=== PATIENT | female | born 1965 | race Two or more races ===

== ENCOUNTER 2018-11-18 06:49 | Day surgery (SDC) | payer OTHER ==
[2018-11-18] VITALS (13 sets, daily range): BP systolic 111–143; BP diastolic 61–71
[~2018-11-18] VITALS: Ht 157.5 cm; Wt 92.1 kg
[~2018-11-18 06:49] MED LIST: ceFAZolin 1gm IVPB IVPB ONE; celeBREX 200mg Cap **SURGERY PATIENTS ONLY ORAL ONE; oxyCONTIN 20mg tab ORAL ONE
[2018-11-18] MEDS ORDERED: Kenalog-40 1ml Vial ONE (08:33)
[2018-11-18] MEDS ORDERED: EPINEPHrine 1mg/1ml Amp ONE (08:33)
[2018-11-18] MEDS ORDERED: Ketorolac 30mg Inj ONE (08:33)
[2018-11-18] MEDS ORDERED: Bupivacaine 0.25% Inj 30ml INJ ONE (08:33)
[2018-11-18] MEDS ORDERED: Rocuronium Bromide 50mg/5ml Inj IV ONE (08:33)
[2018-11-18] MEDS ORDERED: fentaNYL 100 mcg/2 mL IV ONE (08:36)
[2018-11-18] MEDS ORDERED: Midazolam 2mg/2ml Inj ONE (08:36)
--- NOTE | 2018-11-18 08:37 | Pre-Procedure Note/Attestation ---
Pre-Procedure Note/Attestation Complete Prior to Procedure Planned Procedure: left Procedure Narrative: shoulder arthroscopy, sad, capsular release, possible rc repair Indications for Procedure Pre-Operative Diagnosis: left shoulder rct, impingement Attestation I attest that I discussed the nature of the procedure; its benefits; risks and complications; and alternatives (and the risks and benefits of such alternatives ), prior to the procedure, with the patient (or the patient's legal customer support representative). I attest that, if there was a reasonable possibility of needing a blood transfusion, the patient (or the patient's legal customer support representative) was given the [facility] standardized written summary, pursuant to the [place] Blood Safety Act ([place] Health and Safety Code # 1645, as amended). I attest that I re-evaluated the patient just prior to the surgery and that there has been no change in the patient's H&P, except as documented below: Jered Reina MD Nov 18, 2018 08:37
--- NOTE | 2018-11-18 08:38 | Operative Note - PDOC ---
Operative Note Operative Note Pre-op Diagnosis: left shoulder rct, impingement Procedure: see op report Post-op Diagnosis: same as pre-op plus Operative Findings: consistent w/pre-op dx studies Anesthesia: regional Specimen: none Complications: none Condition: stable Estimated Blood Loss: none Implant(s) used?: Yes Jered Reina MD Nov 18, 2018 08:38
[2018-11-18] MEDS ORDERED: celeBREX 200mg Cap **SURGERY PATIENTS ONLY ORAL ONE (08:42)
[2018-11-18] MEDS ORDERED: oxyCONTIN 20mg tab ORAL ONE (08:42)
[2018-11-18] MEDS ORDERED: D5 1/2NS 1,000 ML IV SCH (08:45)
[2018-11-18] MEDS ORDERED: Tylenol #3 tab (300mg/30mg) ORAL PRN (08:45)
[2018-11-18] MEDS ORDERED: HYDROcodone/Acetamin 5/325 tab ORAL PRN (08:45)
[2018-11-18] MEDS ORDERED: HYDROmorphone 1mg/ml Carpuject SUBQ PRN (08:45)
[2018-11-18] MEDS ORDERED: Glycopyrrolate 0.2mg/ml 1ml Vial ONE (09:00)
[2018-11-18] MEDS ORDERED: LR 1000ml ONE (09:00)
[2018-11-18] MEDS ORDERED: NS Irrig 4000ml IRRIG ONE (09:00)
[2018-11-18] MEDS ORDERED: Metoclopramide 10mg/2ml Inj ONE ×2 (09:00→09:34)
[2018-11-18] MEDS ORDERED: Propofol 200mg/20ml IV ONE (09:34)
[2018-11-18] MEDS ORDERED: Neostigmine 1mg/ml 10ml Inj ONE (09:34)
[2018-11-18] MEDS ORDERED: Lidocaine 1% MPF 10mg/ml 5ml ONE (09:34)
[2018-11-18] MEDS ORDERED: Esmolol 100mg/10ml Inj ONE (09:34)
[2018-11-18] MEDS ORDERED: Hydromorphone 0.5mg/0.5ml inj IVP PRN (11:30)
[2018-11-18] MEDS ORDERED: fentaNYL 100 mcg/2 mL IV PRN (11:30)
[2018-11-18] MEDS ORDERED: Metoclopramide 10mg/2ml Inj IVP PRN (11:30)
[2018-11-18] MEDS ORDERED: Acetaminophen (Non formulary) 100 ML IV ONE (12:00)
[2018-11-18] MEDS ORDERED: ZANTAC150 MG ORAL (13:46)
[2018-11-18] MEDS ORDERED: CELEBREX200 MG ORAL (13:47)
[2018-11-18] MEDS ORDERED: CYCLOBENZAPRINE10 MG ORAL (13:48)
[2018-11-18] MEDS ORDERED: LD2JL30 TOPIC (13:49)
[2018-11-18] MEDS ORDERED: BIOFREEZE118 ML TP (13:49)
--- NOTE | 2018-11-18 15:22 | 48 Hour Post Anesthesia Eval ---
Post Anesthesia Evaluation Procedure: left shoulder SAD Date of Evaluation: Nov 18, 2018 Time of Evaluation: 15:20 Blood Pressure Systolic: 128 0: 75 Pulse Rate: 64 Respiratory Rate: 14 Temperature (Fahrenheit): 97.1 - 14 O2 Sat by Pulse Oximetry: 97 Airway: patent Nausea: No Vomiting: No Hydration Status: adequate Cardiopulmonary Status: stable Mental Status/LOC: patient returned to baseline Follow-up Care/Observations: na Post-Anesthesia Complications: none Follow-up care needed: N/A Shalonda Lee CRNA Nov 18, 2018 15:22
--- NOTE | 2018-11-18 15:24 | Immediate Post-Op Evaluation ---
Immediate Post-Op Evalulation Immediate Post-Op Evalulation Procedure: left shoulder SAD Date of Evaluation: Nov 18, 2018 Time of Evaluation: 09:00 IV Fluids: 800 Blood Pressure Systolic: 143 Blood Pressure Diastolic: 65 Pulse Rate: 81 Respiratory Rate: 14 O2 Sat by Pulse Oximetry: 99 Temperature (Fahrenheit): 97.2 Pain Score (1-10): 0 Nausea: No Vomiting: No Complications none Patient Status: awake, reacts, patent Hydration Status: adequate Drug: ancef Time Given: 09:15 Shalonda Lee CRNA Nov 18, 2018 15:24
--- NOTE | 2018-11-18 15:29 | Anethesia Preoperative Eval ---
Anesthesia Pre-op PMH/ROS General Date of Evaluation: Nov 18, 2018 Time of Evaluation: 08:45 Anesthesiologist: brent ASA Score: ASA 2 Mallampati Score Class I : Soft palate, uvula, fauces, pillars visible Class II: Soft palate, uvula, fauces visible Class III: Soft palate, base of uvula visible Class IV: Only hard plate visible Mallampati Classification: Class II Surgeon: ion Diagnosis: shoulder pain Surgical Procedure: left shoulder SAD Anesthesia History: none Family History: no anesthesia problems Allergies: Coded Allergies: No Known Allergies (Unverified , 11/17/18) Medications: see eMAR Patient NPO?: Yes NPO Date: Nov 18, 2018 NPO Time: 08:45 Past Medical History Cardiovascular: Reports: HTN; Denies: CAD, RI, valve dz, arrhythmia, other Pulmonary: Denies: asthma, COPD, BOBO, other Gastrointestinal/Genitourinary: Reports: GERD; Denies: CRI, ESRD, other Neurologic/Psychiatric: Denies: dementia, CVA, depression/anxiety, TIA, other Endocrine: Denies: DM, hypothyroidism, steroids, other HEENT: Denies: cataract (L), cataract (R), glaucoma, [place] (L), [place] (R), other Hematology/Immune: Denies: anemia, DVT, bleeding disorder, other Musculoskeletal/Integumentary: Denies: OA, RA, DJD, DDD, edema, other Other: obesity PSxH Narrative: unknown Anesthesia Pre-op Phys. Exam Physician Exam Last Vital Signs Date Time Temp Pulse Resp B/P (MAP) Pulse Ox O2 Delivery O2 Flow Rate FiO2 11/18/18 13:40 89 18 128/69 95 Room Air 11/18/18 11:50 97.4 11/18/18 10:45 6.0 Constitutional: NAD Neurologic: CN 2-12 intact Cardiovascular: RRR Respiratory: CTA Gastrointestinal: S/NT/ND Airway Exam Mallampati Classification 2 Mallampati Score: Class II MO: full Neck: normal TMD: 2 ROM: full Dentures: no upper, no lower Anesthesia Pre-op A/P Studies Pre-op Studies: EKG - General with peripheral nerve block Risk Assessment & Plan Assessment: no changes in health Plan: general and peripheral nerve block Status Change Before Surgery: No Pre-Antibiotics Drug: ancef Given Within 1 Hr of Incision: Yes Time Given: 09:20 Shalonda Lee CRNA Nov 18, 2018 15:29
--- NOTE | 2018-11-18 19:45 | Operative Note - Dictated ---
DATE OF OPERATION: 11/18/2018 NOTE: "VERY POOR AUDIO QUALITY" PREOPERATIVE DIAGNOSES: 1. Left shoulder rotator cuff tear. 2. Left shoulder adhesive capsulitis. POSTOPERATIVE DIAGNOSES: 1. Left shoulder traumatic adhesive capsulitis. 2. Impingement syndrome. 3. Subdeltoid adhesions. PROCEDURE: 1. Diagnostic shoulder arthroscopy. 2. Rotator interval release with concurrent pancapsular release. 3. Subacromial decompression bursectomy. 4. Manipulation under anesthesia. SURGEON: Jered Reina M.D. ANESTHESIA: Interscalene with general. INDICATION FOR PROCEDURE: The patient is a pleasant female who has had progressive left shoulder pain and significant restricted range of motion. She had an MRI, which showed evidence of rotator cuff tear. Given that she failed conservative treatment, she elected to undergo left shoulder diagnostic arthroscopy, manipulation under anesthesia, possible pancapsular release, subacromial decompression with concurrent rotator cuff repair. Risks, limitations, expectations, and complications of the procedure were discussed in detail. All questions were addressed. DESCRIPTION OF PROCEDURE: After informed consent was obtained, the patient was brought to the operating room. The patient was placed under interscalene with general anesthesia. The patient was then carefully placed in beach-chair position. Left shoulder was prepped and draped in sterile manner. Time-out was performed. Examination under anesthesia was performed. The shoulder flexed to 90 degrees, abducted to 45, extension was 45, internal rotation was 30. Gentle manipulation under anesthesia was performed all the way to forward flexion to 170, abduction to 90, with external rotation to 90, and internal rotation to 80. At this point, the camera was placed in the glenohumeral joint. There was significant hematoma that was well visualized. A medial working portal was established and the hematoma was evacuated to better visualize the glenohumeral joint. There was significant erythema along the anterior labrum and rotator interval as well as posterior capsule. Release of rotator interval using a shaver was performed. The biceps tendon was intact and the superior labrum as well as the articular portion of rotater cuff was intact. The camera was then repositioned in the subacromial space. There was significant erythema and hypertrophic bursal tissue, which was debrided to visualize the undersurface of the acromion. Acromioplasty was started from lateral to medial and completed from posterior to anterior. Once that was done, complete lysis of adhesions in the subbursal space was performed. Once this was done, the shoulder was taken through range of motion and internal rotation and formal posterior capsular release was not needed. At this point, the instruments were removed. Portal sites were closed with 3-0 Monocryl sutures. Steri-Strips and a sterile dressing were applied. The patient was awoken and taken to recovery room with stable vital signs. ESTIMATED BLOOD LOSS: None. COMPLICATIONS: None. SPECIMENS: None. IMPLANTS: None. Jered Reina M.D. DR: Corby JOB#: [id number] CC: [email or web address]
== END 2018-11-18 15:00 | disposition home or self-care (01) ==
LOC: SUR 06:49
DX: M75.02 Adhesive capsulitis of left shoulder (principal); M75.42 Impingement syndrome of left shoulder; R73.03 Prediabetes; E78.5 Hyperlipidemia, unspecified; K21.9 Gastro-esophageal reflux disease without esophagitis; E66.9 Obesity, unspecified; E55.9 Vitamin D deficiency, unspecified
CPT/HCPCS: 29822; 82962; J0171; J0690; J1885; J2250; J2405; J2704; J2710; J2765; J3010; J3301; J3490; 94003; 94150